=== PATIENT | female | born 2000 | race Caucasian/White ===

== ENCOUNTER 2019-04-04 14:14 | Emergency (ER) | payer MEDICAID ==
[~2019-04-04] VITALS: Ht 160 cm; Wt 61.2 kg
[2019-04-04 14:24] VITALS: Ht 160 cm; Wt 61.2 kg
[2019-04-04 16:07] VITALS: BP 117/77
== END 2019-04-04 16:07 | disposition home or self-care (01) ==
LOC: ED 14:14
DX: N39.0 Urinary tract infection, site not specified (principal)

== ENCOUNTER 2020-08-16 20:47 | Emergency (ER) | payer OTHER, SELFPAY ==
[~2020-08-16] VITALS: Ht 165.1 cm; Wt 72.6 kg
[2020-08-16 20:50] VITALS: Ht 165.1 cm; Wt 72.6 kg
[2020-08-16 22:11] VITALS: BP 116/85
== END 2020-08-16 22:11 | disposition home or self-care (01) ==
LOC: ED 20:47
DX: U07.1 COVID-19 (principal)
CPT/HCPCS: U0003